=== PATIENT | male | born 1960 | race Caucasian/White ===

== ENCOUNTER → 2017-04-17 | Outpatient (CLI) | payer OTHER ==
[~2017-04-17] MED LIST: NAPR-576 PO
== END ==
LOC: CLAB 12:45
PROVIDERS: ATTEND Specialist
DX: B18.2 Chronic viral hepatitis C (principal); R79.9 Abnormal finding of blood chemistry, unspecified; I10 Essential (primary) hypertension; L21.8 Other seborrheic dermatitis; Z20.2 Contact with and (suspected) exposure to infections with a predominantly sexual mode of transmission; Z79.899 Other long term (current) drug therapy
CPT/HCPCS: 36415; 82140